=== PATIENT | male | born 1975 | race Caucasian/White ===

== ENCOUNTER 2017-06-19 19:04 | Emergency (ER) | payer BC ==
[2017-06-19 19:37] VITALS: BP 145/80; PULSE 102; RESP 18; TEMP 98.6
--- NOTE | 2017-06-19 20:11 | ED ---
Upper Extremity HPI - General Chief Complaint: Extremity Injury, Upper Stated Complaint: LEFT SHOULDER INJURY Time Seen by Provider: 06/19/17 19:46 Source: patient, RN notes reviewed Mode of arrival: ambulatory Limitations: no limitations - History of Present Illness Initial Comments: This is a 41-year-old male who presents to the emergency department with chief complaint of left shoulder injury. Patient states that at 6 PM last evening he was lifting weights at home. He states he was at approximately 45 incline and doing shoulder press at 60 pounds. He states after a few reps he felt a sharp pain in his left shoulder. Patient states he has difficulty lifting his arm above his shoulder due to pain. He states that there is a constant dull ache but with movement of his arm there is a sharp pain that radiates to his bicep and chest wall. Denies any other injuries or trauma. Denies fever, chills, chest pain, shortness of breath, abdominal pain, nausea or vomiting, constipation or diarrhea, dysuria or hematuria, numbness or tingling, headache or vision changes. - Related Data Home Medications Medication Instructions Recorded Confirmed No Known Home Medications [No 12/25/15 12/25/15 Known Home Medications] Allergies Allergy/AdvReac Type Severity Reaction Status Date / Time No Known Allergies Allergy Verified 06/19/17 19:37 Review of Systems ROS Statement: Those systems with pertinent positive or pertinent negative responses have been documented in the HPI. ROS Other: All systems not noted in ROS Statement are negative. Past Medical History Past Medical History: No Reported History History of Any Multi-Drug Resistant Organisms: None Reported Past Surgical History: Appendectomy Past Psychological History: No Psychological Hx Reported Smoking Status: Never smoker Past Alcohol Use History: Rare Past Drug Use History: None Reported General Exam - General Exam Comments Initial Comments: General: Awake and alert, well-developed; in no apparent distress. HEENT: Head atraumatic, normocephalic. Pupils are equal, round and reactive to light. Extraocular movements intact. Oropharynx moist without erythema or exudate. Neck: Supple. Normal ROM. Cardiovascular: Regular rate and rhythm. No murmurs, rubs or gallops. Chest symmetrical. Respiratory: Lungs clear to auscultation bilaterally. No wheezes, rales or rhonchi. Normal respiratory effort with no use of accessory muscles. Musculoskeletal: Limited range of motion of the left shoulder with flexion and external rotation due to pain. Normal range of motion with internal rotation, abduction and abduction. Sensation is intact. Radial pulses are 2+ equal and palpable bilaterally. There is tenderness on palpation of the lateral deltoid. Skin: Smoot, warm and dry without rashes or lesions. Neurological: Alert and oriented x3. CN II-XII grossly intact. Speech is fluent and answers are appropriate. No focal neuro deficits. Psychiatric: Normal mood and affect. No overt signs of depression or anxiety noted. Limitations: no limitations Course Vital Signs 06/19/17 19:35 Temperature 98.6 F Pulse Rate 102 H Respiratory 18 Rate Blood Pressure 145/80 O2 Sat by Pulse 99 Oximetry Medical Decision Making - Medical Decision Making This is a 41-year-old male who presents to the emergency department with chief complaint of left shoulder injury. There is tenderness on palpation of the lateral deltoid. Patient has limited range of motion with external rotation and flexion of the left shoulder. X-rays revealed no evidence for acute fractures or dislocations. Patient likely suffering from a rotator cuff injury. Recommended patient to follow up with his primary care provider. Recommended rest, ice, anti-inflammatories and gentle motions of his left shoulder. Also advised against heavy lifting above shoulder level for at least 1 week. Patient's vital signs are stable and he is in no acute distress. He will be discharged home. He is in agreement with plan and voices understanding. All questions were answered. Disposition Clinical Impression: Strain of shoulder Disposition: HOME SELF-CARE Condition: Good Instructions: Rotator Cuff Injury (ED), Shoulder Sprain (ED) Additional Instructions: Please rest, ice and perform gentle movement of the left shoulder. Please no heavy lifting above shoulder level for at least 1 week. May take ibuprofen 600 mg every 6 hours for up to 3 days. Please follow up with primary care provider within 1-2 days. Return to emergency department if symptoms should worsen or any concerns arise. Referrals: None,Stated [Primary Care Provider] - 1-2 days Gilson Mcfarland MD [STAFF PHYSICIAN] - 1-2 days Time of Disposition: 20:44
--- NOTE | 2017-06-19 20:26 | XR ---
EXAMINATION TYPE: XR shoulder complete LT DATE OF EXAM: 06/19/2017 COMPARISON: NONE HISTORY: Shoulder pain TECHNIQUE: 3 views FINDINGS: I see no fracture nor dislocation. Joint spaces are normal. There are no pathologic calcifi cations. IMPRESSION: Negative left shoulder exam
== END 2017-06-19 21:02 | disposition home or self-care (01) ==
LOC: EC 19:04
DX: S46.911A Strain of unspecified muscle, fascia and tendon at shoulder and upper arm level, right arm, initial encounter (principal); X50.0XXA Overexertion from strenuous movement or load, initial encounter
CPT/HCPCS: 99283

== ENCOUNTER 2017-10-16 13:01 | Emergency (ER) | payer BC ==
[2017-10-16 13:13] VITALS: BP 133/84; PULSE 94; RESP 18; TEMP 98.7
[2017-10-16] MEDS ORDERED: BACITRACIN 500 UNIT/GM OINT 28.4 GM TUBE TOPICAL ONE (14:04)
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
== END 2017-10-16 14:36 | disposition home or self-care (01) ==
LOC: EC 13:01
DX: T65.891A Toxic effect of other specified substances, accidental (unintentional), initial encounter (principal); T24.432A Corrosion of unspecified degree of left lower leg, initial encounter; T24.431A Corrosion of unspecified degree of right lower leg, initial encounter; Y93.89 Activity, other specified
CPT/HCPCS: 99283

== ENCOUNTER 2018-11-26 | Emergency (ER) | payer BC ==
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
== END 2018-11-26 15:13 | disposition home or self-care (01) ==
CPT/HCPCS: 99283

== ENCOUNTER → 2020-09-03 | Outpatient (CLI) | payer BC ==
--- NOTE | 2020-09-03 12:05 | MR ---
EXAMINATION TYPE: MR brain wo con DATE OF EXAM: 09/03/2020 COMPARISON: NONE HISTORY: Head injury 2 weeks ago, migraine. TECHNIQUE: Multiplanar, multisequence imaging of the brain and brainstem is performed without IV cont rast. FINDINGS: Diffusion weighted images demonstrate no evidence of a recent infarct or other diffusion abnormality. There is no extraaxial fluid collection or significant white matter signal abnormality. The ventricu lar system and cisternal spaces are normal in size and appearance. The brain volume is age appropria te. T2 Star weighted images show no suspicious intraparenchymal blood product. Midline structures demonstrate normal morphology. The craniocervical junction appears within normal limits. Normal vascular flow voids are present. There is 1.4 cm mucous retention cyst and/or polyp in the inferior left maxillary sinus otherwise the paranasal sinuses are grossly clear. Globes are inta ct bilaterally. IMPRESSION: Grossly unremarkable study.
== END | disposition home or self-care (01) ==
LOC: RADMRIMAIN 10:48
PROVIDERS: ATTEND Family Medicine
DX: S09.90XA Unspecified injury of head, initial encounter (principal); X58.XXXA Exposure to other specified factors, initial encounter
CPT/HCPCS: 70551